=== PATIENT | male | born 1960 | race Caucasian/White ===

== ENCOUNTER 2018-10-23 14:47 | Emergency (ER) | payer OTHER ==
--- NOTE | 2018-10-23 15:11 | EDM.PDOC ---
ED HPI GENERAL MEDICAL PROBLEM - General Chief Complaint: Abdominal Pain Stated Complaint: STOMACH PAIN Time Seen by Provider: 10/23/18 15:07 Source of Information: Reports: Patient History Limitations: Reports: No Limitations - History of Present Illness INITIAL COMMENTS - FREE TEXT/NARRATIVE: 57-year-old male presents to the ED with 2 complaints. One is that he is identified a mobile lump in his left lower back that is somewhat painful. He discovered this yesterday. He also has diffuse pain in his left lower abdomen that started after severe paroxysmal coughing spells the last week due to viral bronchitis. States it hurts to bend over and to do certain movements like stand fully erect etc. His concern was whether or not he had developed a hernia. Functioning normally. He had a jose who from a lump in his lower back most likely a sarcoma which is making him concerned of course about the lump that he is found in his left lower back. He states he's had no fever or chills during this illness. Offering paroxysmal he but states overall much better than it was. He has not taken anything for the pain. Onset: Sudden Onset Date: 10/20/18 (F lower quadrant abdominal pain started 4 days ago. He discovered a lump in his left lower back adjacent to the lumbar spine yesterday. ) Duration: Day(s):, Intermittent, Waxing/Waning Location: Reports: Abdomen, Back (Lower back over the lumbar paraspinal musculature) Quality: Reports: Ache, Burning, Sharp, Stabbing, Other Severity: Moderate Improves with: Reports: Rest Worsens with: Reports: Other (Worse with coughing), Movement ( and certain movements) Context: Reports: Other. 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 He's already discussed this with Dr. Garcia.) - Past Surgical History Other Musculoskeletal Surgeries/Procedures:: needs total L shoulder Social & Family History - Tobacco Use Smoking Status *Q: Never Smoker - Caffeine Use Caffeine Use: Reports: Tea - Recreational Drug Use Recreational Drug Use: Yes Recreational Drug Type: Reports: Marijuana/Hashish ED ROS GENERAL - Review of Systems Review Of Systems: See Below Constitutional: Reports: Malaise, Weakness, Fatigue (During his viral bronchitis. He seems to be getting better), Night Sweats. Denies: Fever, Chills HEENT: Reports: Other (Voice is coming back.) Respiratory: Reports: Shortness of Breath, Cough, Sputum. Denies: Wheezing, Pleuritic Chest Pain, Hemoptysis (Occasional whitish sputum production.) Cardiovascular: Reports: Chest Pain (Central chest discomfort from coughing so much.). Denies: Blood Pressure Problem, Claudication (Not diagnosed with hypertension), Dyspnea on Exertion, Edema, Lightheadedness, Orthopnea Endocrine: Reports: No Symptoms GI/Abdominal: Reports: Abdominal Pain (Abdominal pain left lower quadrant and he points to where his external obliques were joint onto the rectus abdominis muscles in the left lower quadrant. This is very close to the internal inguinal canal. Pain is well localized to an area the size of a silver dollar. No definitive hematoma is evident but his abdominal wall is fairly obese.) : Reports: No Symptoms Musculoskeletal: Reports: Other Skin: Reports: No Symptoms Neurological: Reports: No Symptoms Psychiatric: Reports: No Symptoms Hematologic/Lymphatic: Reports: No Symptoms Immunologic: Reports: No Symptoms ED EXAM, GI/ABD - Physical Exam Exam: See Below Exam Limited By: No Limitations General Appearance: Alert, WD/WN, Anxious, Mild Distress Eyes: Bilateral: Normal Appearance Throat/Mouth: Normal Inspection, Normal Lips, Normal Oropharynx Head: Atraumatic, Normocephalic Neck: Normal Inspection, Supple, Full Range of Motion, Tender Lateral. No: Lymphadenopathy (L), Lymphadenopathy (R) Respiratory/Chest: No Respiratory Distress, Lungs Clear, Normal Breath Sounds, Other. No: Rhonchi, Wheezing Cardiovascular: Normal Peripheral Pulses, Regular Rate, Rhythm, No Edema, No Gallop, No Murmur (Does have a congested sounding cough.), No Rub GI/Abdominal Exam: Normal Bowel Sounds, Soft, Tender (Moderately obese. An area of tenderness the size of a silver dollar in the left lower quadrant of the abdomen where his external oblique muscles attached to the rectus abdominis muscles just superior to the internal inguinal canal. No definitive hematoma evident but point tenderness evident.), Other (Male) Exam: No Hernia, Other (Invagination of the scrotum done bilaterally reveals no evidence of an inguinal hernia on either side.) Back Exam: Other (On his back exam he has a palpable lump slightly largely manage only being adjacent to lumbar 3 spinous process. This is a paraspinous muscle tear that is likely been present for a lengthy period of time. It doesn' t seem to bother him much to move it around. He was reassured it is not a tumor. No way away either.) Extremities: Normal Inspection, Normal Range of Motion, Non-Tender Neurological: Alert, Oriented, CN II-XII Intact, Normal Cognition Psychiatric: Normal Affect, Normal Mood Skin Exam: Dry, Intact, Normal Color, No Rash Course - Vital Signs Last Recorded V/S: Last Vital Signs Temp 36.6 C 10/23/18 14:54 Pulse 90 10/23/18 14:54 Resp 16 10/23/18 14:54 BP 148/98 H 10/23/18 14:54 Pulse Ox 96 10/23/18 14:54 - Radiology Interpretation Free Text/Narrative:: 57-year-old male presents to the ED with concerns of diffuse left lower quadrant abdominal pain. This developed about 4-5 days ago secondary to severe paroxysmal coughing events due to viral bronchitis. States the pain is quite intense at times and worsened by certain movements and by standing fully erect. He also discovered a lump in his left lower back yesterday on palpation and was wondering if they were connected. Examination reveals he still has a mild paroxysmal cough but his lungs are clear and he is afebrile. Respiratory rate is 16/m and O2 sats are 96%. Examination of his left lower back shows that he has a palpable mobile muscle tear that is likely old off of the transverse process of the third lumbar vertebra. 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 He had a friend who developed a sarcoma and the same area and from this. On examination of his abdomen he has point tenderness in the left lower quadrant adjacent to where the external oblique muscle attaches to the rectus abdominis muscle just superior to the internal inguinal canal. This indicates that it is a tear likely of the external oblique from the rectus abdominis. Of note the patient is fairly obese with lax abdominal wall musculature. Invagination of the scrotum bilaterally revealed no evidence of a inguinal hernia. Patient reassured this will go away on its own over the next 14 days or so. I placed him on Voltaren 50 mg twice daily for the next 8 days in an effort to help the area heal and reduce some of his pain and inflammation. Departure - Departure Time of Disposition: 15:07 Disposition: Home, Self-Care 01 Condition: Fair Clinical Impression: Abdominal wall strain Qualifiers: Encounter type: initial encounter Qualified Code(s): S39.011A - Strain of muscle, fascia and tendon of abdomen, initial encounter Strain of lumbar paraspinal muscle Qualifiers: Encounter type: initial encounter Qualified Code(s): S39.012A - Strain of muscle, fascia and tendon of lower back, initial encounter - Discharge Information *PRESCRIPTION DRUG MONITORING PROGRAM REVIEWED*: Not Applicable *COPY OF PRESCRIPTION DRUG MONITORING REPORT IN PATIENT KELL: Not Applicable Prescriptions: Diclofenac Sodium [Voltaren] 50 mg PO BID #24 tab.ec Instructions: Muscle Strain, [id number] Referrals: PCP,None [Primary Care Provider] - Forms: ED Department Discharge Additional Instructions: Evaluation the emergency room today in regards to acute onset of left lower quadrant abdominal pain after coughing very hard for the last several days due to viral bronchitis. Examination reveals no evidence of an inguinal hernia. It appears that you have strained the external oblique muscle in the lower abdominal wall where it attaches to the midline or rectus abdominis muscle. This muscle tear will take on average 14 days to heal. Similarly you identified a lump in your lumbar back on the left side. Examination of this area shows this is muscle to that is been pulled away from the transverse process of the underlying bone on the left side. This is of no consequence. It may well of occurred from coughing excessively but is more likely to have occurred from the type of work you do treatment is time to heal. Suggest use of Voltaren 50 mg twice daily for the next 8 days to reduce pain and inflammation. If you're going to put anything on the sore spot then Icy/hot gel or Biofreeze to the area and a heat pack.
== END 2018-10-23 15:18 | disposition home or self-care (01) ==
LOC: JD.ED 14:47
DX: S39.011A Strain of muscle, fascia and tendon of abdomen, initial encounter (principal); S39.012A Strain of muscle, fascia and tendon of lower back, initial encounter; X58.XXXA Exposure to other specified factors, initial encounter
CPT/HCPCS: 99283

== ENCOUNTER 2019-04-07 07:10 | Emergency (ER) | payer OTHER ==
--- NOTE | 2019-04-07 07:51 | EDM.PDOC ---
ED HPI GENERAL MEDICAL PROBLEM - General Chief Complaint: Neck Problem Stated Complaint: NECK PAIN Time Seen by Provider: 04/07/19 07:35 Source of Information: Reports: Patient, RN Notes Reviewed - History of Present Illness INITIAL COMMENTS - FREE TEXT/NARRATIVE: 58-year-old male comes in with right-sided neck pain. This started about 5 days ago. Coughed sometime during that night and awakened the next morning with moderately severe pain base of right neck. He has had pain with motion both to the right and left pedis continued to bother him all week. Trying some Advil, ice today the pain is worse. 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 The pain does not radiate to the right arm or hand. As had some mild numbness of the fingers of his right hand but that comes and goes. He also does have history of quite severe bilateral shoulder discomfort that is chronic. 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 He's already discussed this with Dr. Garcia.) - Past Surgical History Other Musculoskeletal Surgeries/Procedures:: needs total L shoulder Social & Family History - Caffeine Use Caffeine Use: Reports: Tea ED ROS GENERAL - Review of Systems Review Of Systems: See Below Constitutional: Denies: Fever, Chills, Diaphoresis HEENT: Denies: Ear Pain, Sinus Problem, Throat Pain Respiratory: Denies: Shortness of Breath Cardiovascular: Denies: Chest Pain GI/Abdominal: Denies: Abdominal Pain, Nausea, Vomiting Musculoskeletal: Reports: Neck Pain, Back Pain Skin: Reports: No Symptoms Neurological: Reports: No Symptoms ED EXAM, UPPER BACK/NECK PAIN - Physical Exam Exam: See Below General Appearance: Alert, Moderate Distress Throat/Mouth Exam: Normal Inspection Head Exam: Atraumatic. No: Facial Swelling Neck Exam: Paraspinous Muscle Tender, Other (pain with motion R and L, no swelling, warmth or erythema, no adenopathy) GI/Abdominal: Soft, Non-Tender Back Exam: Paraspinal Tenderness. No: Vertebral Tenderness Extremities: Normal Inspection, Normal Range of Motion Neurologic: No Motor/Sensory Deficits Skin Exam: Normal Color, Warm/Dry Course - Vital Signs Last Recorded V/S: Last Vital Signs Temp 97.5 F 04/07/19 07:20 Pulse 98 04/07/19 07:20 Resp 18 04/07/19 07:20 BP 186/101 H 04/07/19 07:20 Pulse Ox 100 04/07/19 07:20 Departure - Departure Time of Disposition: 07:52 Disposition: Home, Self-Care 01 Condition: Fair Clinical Impression: Neck pain - Discharge Information Prescriptions: Naproxen [Naprosyn] 500 mg PO Q12HR #20 tab Acetaminophen/HYDROcodone [[place] 325-5 MG] 1 tab PO Q6H PRN #14 tablet PRN Reason: Pain Referrals: PCP,None [Primary Care Provider] - Forms: ED Department Discharge, ED Return to Work/School Form Additional Instructions: Naprosyn 500 mg twice daily. Continue to alternate ice and heat as needed. Take Tylenol in addition to the Naprosyn up to 3 times daily or hydrocodone if needed for severe pain. Do not take Tylenol and hydrocodone at same time. Do not drive or work when taking hydrocodone. Follow up with one of our [facility] providers early next week for recheck. Call [phone] for appointment. If symptoms not resolving as expected physical therapy will be the next level of treatment.
== END 2019-04-07 08:25 | disposition home or self-care (01) ==
LOC: JD.ED 07:10
DX: M54.2 Cervicalgia (principal)
CPT/HCPCS: 99283

== ENCOUNTER 2019-04-24 10:46 | Emergency (ER) | payer OTHER ==
[2019-04-24] MEDS ORDERED: Naproxen 500 MG Tab PO ONE (11:37)
--- NOTE | 2019-04-24 11:44 | EDM.PDOC ---
ED HPI GENERAL MEDICAL PROBLEM - General Chief Complaint: Upper Extremity Injury/Pain Stated Complaint: RT SHOULDER PAIN Time Seen by Provider: 04/24/19 11:38 Source of Information: Reports: Patient, RN, RN Notes Reviewed History Limitations: Reports: No Limitations - History of Present Illness INITIAL COMMENTS - FREE TEXT/NARRATIVE: Patient is a 58-year-old male who presents to our ED with right shoulder pain. He reports he has been having difficulty with his shoulders bilaterally for some time now. He had been receiving steroid injections in his left shoulder and he has essentially ran out of how many his insurance will pay for. He reports he needs a left total shoulder arthroplasty. 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 He has noted the pain has been worsening to the point of making it difficult for him to work. Reports he has noted some right arm numbness and swollen fingers. He has been following Dr. Blancas however due to some issues with payments he's been unable to see him now. Denies any prior MRI of the shoulder. Denies any prior imaging of the shoulder. Reports he was here a few weeks ago for neck pain and was given "King's and Naprosyn" which she reports worked well. States he has never had a cortisone injection in his right shoulder. Denies any recent trauma. Denies any past medical history. No current medications. No known drug allergies. He does not have a primary care provider but states he would like to establish locally. Right Shoulder Pain Score (Numeric/FACES): 10 - Related Data Allergies Allergy/AdvReac Type Severity Reaction Status Date / Time No Known Allergies Allergy Verified 04/24/19 10:56 Home Meds: Home Meds Naproxen [Naprosyn] 500 mg PO Q12HR 5 Days #1 tab 04/24/19 [Rx] Past Medical History - Past Health History Medical/Surgical History: Denies Medical/Surgical History Musculoskeletal History: Reports: Osteoarthritis - Past Surgical History Other Musculoskeletal Surgeries/Procedures:: needs total L shoulder Social & Family History - Tobacco Use Smoking Status *Q: Never Smoker - Caffeine Use Caffeine Use: Reports: Tea Review of Systems - Review of Systems Review Of Systems: See Below Constitutional: Reports: No Symptoms. Denies: Chills, Fever, Weakness Respiratory: Reports: No Symptoms. Denies: Shortness of Breath, Wheezing, Cough Cardiovascular: Reports: No Symptoms. Denies: Chest Pain, Edema, Palpitations Musculoskeletal: Reports: Shoulder Pain (Bilateral with right being worse than left now. ) Skin: Reports: No Symptoms. Denies: Cyanosis Neurological: Reports: No Symptoms Psychiatric: Reports: No Symptoms ED EXAM, GENERAL - Physical Exam Exam: See Below Exam Limited By: No Limitations General Appearance: Alert, WD/WN, No Apparent Distress Ears: Normal External Exam Nose: Normal Inspection Head: Atraumatic, Normocephalic Neck: Normal Inspection, Supple, Non-Tender, Full Range of Motion Respiratory/Chest: No Respiratory Distress, Lungs Clear, Normal Breath Sounds, No Accessory Muscle Use, Chest Non-Tender Cardiovascular: Regular Rate, Rhythm, No JVD, No Murmur Back Exam: Normal Inspection, Full Range of Motion Extremities: Normal Inspection, No Pedal Edema, Normal Capillary Refill, Limited Range of Motion (difficulty with all range of motion due to pain. Patient reports he is unable to elevate the extremity). No: Non-Tender ( tenderness to anterior and posterior aspect of shoulder joint.) Neurological: Alert, Oriented, CN II-XII Intact (Grossly) Course - Vital Signs Last Recorded V/S: Last Vital Signs Temp 97.5 F 04/24/19 10:53 Pulse 81 04/24/19 10:53 Resp 16 04/24/19 10:53 BP 162/95 H 04/24/19 10:53 Pulse Ox 97 04/24/19 10:53 - Orders/Labs/Meds Meds: Medications Discontinued Medications Generic Name Dose Route Start Last Admin Trade Name Freq PRN Reason Stop Dose Admin Naproxen 500 mg 04/24/19 11:37 04/24/19 11:50 Naprosyn PO 04/24/19 11:38 500 mg ONETIME ONE Administration - Re-Assessments/Exams Free Text/Narrative Re-Assessment/Exam: initial plan will be to provide one-time dose of Naprosyn and obtain x-ray of right shoulder. We had a lengthy discussion on need to establish with a primary care provider. Since the patient is having some difficulty with medical bills we discussed possibility of seeking care with them or walking clinic in the future. Patient is very receptive to this idea. He would like a list of primary care providers in the area. 04/24/19 11:48 Departure - Departure Time of Disposition: 12:30 Disposition: Home, Self-Care 01 Condition: Good Clinical Impression: Arthritis of right shoulder region - Discharge Information *PRESCRIPTION DRUG MONITORING PROGRAM REVIEWED*: No *COPY OF PRESCRIPTION DRUG MONITORING REPORT IN PATIENT KELL: No Prescriptions: Naproxen [Naprosyn] 500 mg PO Q12HR 5 Days #1 tab Instructions: What You Need to Know About Osteoarthritis, Shoulder Pain, Easy- to-Read, Heat Therapy Referrals: Amado Garcia MD [Physician] - Forms: ED Department Discharge Additional Instructions: You were seen today in the emergency room for right shoulder pain. As you noted this has been an ongoing issue with both of your shoulders. An x-ray of the right shoulder was obtained showing degenerative change within the acromioclavicular joint. There is also a small spur noted within the lower part of this joint. Nothing acute was noted on this x-ray. Unfortunately because this is a structural problem there is nothing I can do to help you long- term. Pain medications will only mask the symptoms and they will return. Because of this it is recommended that you follow-up with Dr. Garcia, orthopedist , as we discussed. You have seen him in the past. Your given a prescription for Naprosyn which he should take every 12 hours with food. This will help with the inflammation around the area. Be cautious as it can lead to upset stomach and ulcers. It is also recommended that you apply heat to the shoulder , but be careful not to burn yourself. As far as her difficulty sleeping, recommend Benadryl or Tylenol PM to occasionally help with these symptoms. You indicated that you do not have a primary care provider but would like to see someone in our clinic. Your given a sheet with names of our providers and contact information. Recommended you follow-up with them should symptoms continue. They may also be able to help you with your sleeping difficulty.
--- NOTE | 2019-04-24 12:07 | CR ---
Right shoulder: Three views of the right shoulder were obtained. Comparison: No previous shoulder study. Joint space narrowing is noted within the acromioclavicular joint with inferior spurring. Glenohumeral joint appears within normal limits. No acute fracture, dislocation or other bony abnormality is seen. Impression: 1. Degenerative change within the acromioclavicular joint as noted above. 2. Right shoulder study is otherwise unremarkable. Diagnostic code #2
== END 2019-04-24 12:54 | disposition home or self-care (01) ==
LOC: JD.ED 10:46
DX: M19.011 Primary osteoarthritis, right shoulder (principal); Z79.899 Other long term (current) drug therapy
CPT/HCPCS: 73030; 99284; A9270; 99283

== ENCOUNTER 2019-08-17 07:26 | Day surgery (SDC) | payer OTHER ==
[~2019-08-17 07:26] MED LIST: EPINEPHrine 1 MG/ML 30 ML MDV IRR SCH; EPINEPHrine 1 MG/ML SDV ONE; Lactated Ringers 1,000 ML IV SCH; Lidocaine 1% 2 ML ONE; Lidocaine 1% 4 ML ONE; Lidocaine 1%/Sod Bicarbonate in NS 8.4% 1 ML Syringe IDERM PRN; Midazolam 1 MG/ML 2 ML SDV ONE; Propofol 200 MG/20 ML SDV ONE; Ropivacaine 0.5% 5 MG/ML 30 ML SDV ONE; Sodium Chloride 0.9% 10 ML Syringe FLUSH PRN; cloNIDine 1,000 MCG/10 ML SDV ONE; fentaNYL 100 MCG/2 ML SDV ONE
--- NOTE | 2019-08-17 08:22 | PCM.PREANE ---
Preanesthetic Assessment - Anesthesia/Transfusion/Family Hx Anesthesia History: Prior Anesthesia Without Reaction Transfusion History: No Prior Transfusion(s) - Review of Systems General: No Symptoms Pulmonary: No Symptoms Cardiovascular: No Symptoms Gastrointestinal: No Symptoms Neurological: No Symptoms Other: Reports: None - Physical Assessment NPO Status Date: 08/16/19 NPO Status Time: 21:00 Vital Signs: Last Vital Signs Temp 98.3 F 08/17/19 07:35 Pulse 81 08/17/19 07:35 Resp 16 08/17/19 07:35 BP 158/90 H 08/17/19 07:35 Pulse Ox 96 08/17/19 07:35 Height: 1.75 m Weight: 107.501 kg ASA Class: 2 Mental Status: Alert & Oriented x3 Airway Class: Mallampati = 2 Dentition: Reports: Edentulous Thyro-Mental Finger Breadths: 3 Mouth Opening Finger Breadths: 3 ROM/Head Extension: Full Lungs: Clear to Auscultation, Normal Respiratory Effort Cardiovascular: Regular Rate, Regular Rhythm - Lab Values: Laboratory Last Values MRSA (PCR) Negative 08/15/19 12:30 - Allergies Allergies/Adverse Reactions: Allergies Allergy/AdvReac Type Severity Reaction Status Date / Time No Known Allergies Allergy Verified 04/24/19 10:56 - Acknowledgements Anesthesia Type Planned: General Anesthesia, Regional Block (Rt Interscalene preoperatively) Pt an Appropriate Candidate for the Planned Anesthesia: Yes Alternatives and Risks of Anesthesia Discussed w Pt/Guardian: Yes Pt/Guardian Understands and Agrees with Anesthesia Plan: Yes PreAnesthesia Questionnaire - Past Health History Medical/Surgical History: Denies Medical/Surgical History Cardiovascular History: Reports: Hypertension Musculoskeletal History: Reports: Osteoarthritis - Past Surgical History Other Musculoskeletal Surgeries/Procedures:: needs total L shoulder - HOME MEDS Home Medications: Home Meds Naproxen [Naprosyn] 500 mg PO Q12HR 5 Days #1 tab 04/24/19 [Rx] Acetaminophen/HYDROcodone [[place] 325-5 MG] 1 - 2 tab PO Q6H PRN #40 tablet 08/17 [Rx] Cyclobenzaprine [Flexeril] 10 mg PO BID PRN #30 tab 08/17/19 [Rx] traMADol [Ultram] 1 tab PO ASDIRECTED PRN 08/17/19 [History] - CURRENT (IN HOUSE) MEDS Current Meds: Current Medications Epinephrine HCl (Adrenalin) 3 mg IRR ONETIME DENNY Stop: 08/17/19 12:00 Lactated Ringer's (Ringers, Lactated) 1,000 mls @ 125 mls/hr IV ASDIRECTED DENNY Stop: 08/17/19 23:00 Last Admin: 08/17/19 07:50 Dose: 125 mls/hr Lidocaine/Sodium Bicarbonate (Buffered Lidocaine 1% In Ns 8.4%) 0.25 ml IDERM ONETIME PRN PRN Reason: Prior to IV Start Stop: 08/17/19 18:00 Last Admin: 08/17/19 07:50 Dose: 0.25 ml Sodium Chloride (Saline Flush) 10 ml FLUSH ASDIRECTED PRN PRN Reason: Keep Vein Open Stop: 08/17/19 18:00
[2019-08-17] MEDS ORDERED: Succinylcholine/Sod PF 100 MG/5 ML SYRINGE IV ONE (08:58)
[2019-08-17] MEDS ORDERED: Propofol 200 MG/20 ML SDV ONE (09:01)
[2019-08-17] MEDS ORDERED: fentaNYL 100 MCG/2 ML SDV ONE (09:17)
[2019-08-17] MEDS ORDERED: Bupivacaine 0.25% 10 ML SDV ONE (09:42)
[2019-08-17] MEDS ORDERED: Ondansetron 4 MG/2 ML SDV ONE (09:58)
[2019-08-17] MEDS ORDERED: Lactated Ringers 1,000 ML ONE (10:01)
--- NOTE | 2019-08-17 10:10 | PCM.PRNOTE ---
- Free Text/Narrative Note: Postoperative regional pain control requested by surgeon. Pre-op Dx: Right Rotator cuff tear Surgical procedure: Rotator cuff repair with subacromial decompression and biceps tenotomy Procedure: Rt Interscalene block with U/S guidance Requesting physician: Dr. Amado Vo Risks and benefits discussed with the patient preoperatively including infection , bleeding, incomplete or failed block, possible nerve damage, local anesthetic toxicity. Chart reviewed, VS stable. Permit signed. Patient in preoperative room 4, stable , alert and awake. Time out performed at 08:30. Oxygen 3L via NC. Right side of the neck was prepped with Chloraprep x 1 and allowed to dry. Midazolam IV 4 mg given in incremental doses. Under aseptic technique, the brachial plexus was identified under ultrasound prior to needle insertion. 2" Stimuplex needle #22 G was inserted under US guidance. Under direct visualization of needle tip and eliciting forearm twitch at 0.6 mA, the injection of 0.5% Ropivacaine with 1:200k epinephrine and 100 mcg of Clonidine, total of 30 mls in divided doses, maintaining negative aspiration was completed without problems. No local anesthetic toxicity was noted. Patient is awake, stable and tolerated the procedure well. Please see the attached U/S images Time: 08:30 - 08:46
[2019-08-17] MEDS ORDERED: fentaNYL 100 MCG/2 ML SDV IVPUSH PRN (10:18)
[2019-08-17] MEDS ORDERED: HYDROmorphone 0.5 MG/0.5 ML Syringe IVPUSH PRN (10:18)
[2019-08-17] MEDS ORDERED: Ketorolac 30 MG/ML SDV IVPUSH SCH (11:30)
[2019-08-17] MEDS ORDERED: Acetaminophen/HYDROcodone 325-5 MG Tab PO PRN (11:39)
[2019-08-17] MEDS ORDERED: Cyclobenzaprine 10 MG Tab PO ONE (11:39)
--- NOTE | 2019-08-17 12:08 | PCM48HPAN ---
Post Anesthesia Note - EVALUATION WITHIN 48HRS OF ANESTHETIC Vital Signs in Normal Range: Yes Patient Participated in Evaluation: Yes Respiratory Function Stable: Yes Airway Patent: Yes Cardiovascular Function Stable: Yes Hydration Status Stable: Yes Pain Control Satisfactory: Yes Nausea and Vomiting Control Satisfactory: Yes Mental Status Recovered: Yes Vital Signs: Last Vital Signs Temp 97.9 F 08/17/19 11:45 Pulse 77 08/17/19 11:45 Resp 19 08/17/19 11:45 BP 122/81 08/17/19 11:45 Pulse Ox 94 L 08/17/19 11:53
--- NOTE | 2019-08-23 06:54 | PCM.OPNOTE ---
- General Post-Op/Procedure Note Date of Surgery/Procedure: 08/17/19 Operative Procedure(s): right shoulder video arthroscopy with large rotator cuff repair, subacromial decompression, biceps tenotomy and extensive debridement Pre Op Diagnosis: right shoulder rotator cuff tear with impingement and biceps tendinopathy Post-Op Diagnosis: Same Anesthesia Technique: General ET Tube, Regional Block Primary Surgeon: Amado Garcia Anesthesia Provider: Vernon Gray Dural Mechanic: Ria Tripp in mLs: 5 Complications: None Condition: Good
--- NOTE | 2019-08-23 10:08 | OR ---
DATE OF OPERATION: 08/17/2019 SURGEON: Amado Garcia MD OPERATION PERFORMED: Right shoulder video arthroscopy with large rotator cuff repair, subacromial decompression, biceps tenotomy, and extensive debridement. PREOPERATIVE DIAGNOSIS: Right shoulder rotator cuff tear with impingement and biceps tendinopathy. POSTOPERATIVE DIAGNOSIS: Right shoulder rotator cuff tear with impingement and biceps tendinopathy. ANESTHESIA: General endotracheal intubation with regional interscalene block. ANESTHESIA PROVIDER: Fay Ott. REHAB NURSING TECH: Ria Tripp PA-C ESTIMATED BLOOD LOSS: 5 mL. COMPLICATIONS: None. CONDITION: Stable. DESCRIPTION OF PROCEDURE: The patient was identified in the preoperative holding area. Proper site was marked and identified by surgeon. The patient was taken back to the operating theater, where after adequate anesthesia, the patient was placed in the left lateral lazy decubitus position. Wedge was placed posteriorly. Right upper extremity was then sterilely prepped and draped in usual sterile fashion. OR time-out was performed. The patient received 2 g of IV Ancef and 12 pounds of traction was applied to the right upper extremity. Standard posterior incision was made. Scope trocar was introduced to the glenohumeral joint. The patient was noted to have a full-thickness rotator cuff tear of the supraspinatus tendon. Subscapularis tendon was intact. Biceps tendon and the superior labrum were noted to have significant fraying as well as erythema in the biceps tendon. There was no large cartilaginous defects. Anterior portal was then created from an outside-in technique and a biceps tenotomy was performed and extensive debridement was done of the superior labrum as well as any loose and remaining synovium and remaining loose fragments of the labrum back to a stable rim. At this time, attention was turned to the subacromial space. The patient was noted to have a large amount of bursitis. Lateral portal was created and extensive debridement of the subacromial bursa was then done. He was also noted to have a type 2/3 acromion and an acromioplasty back to a smooth border using a 4.0 full- radius ирина was completed at this time. A good bony bleeding bed was created with the use of a ирина at the old footprint of the supraspinatus tendon. One 4.75 mm Arthrex SwiveLock anchor triple loaded was then placed medially. Two limbs of FiberTape and then 4 limbs of FiberWire were then brought through this. Another 4.75 mm double loaded anchor was placed posteriorly for a double medial row repair and both limbs of FiberTape and 2 limbs of FiberWire were then passed posteriorly. All 6 limbs of the FiberWire were then tied medially and cut and then 2 limbs of the FiberTape were brought out laterally and self-tapping 4.75 mm Arthrex SwiveLock anchors were then placed anterior and posteriorly for a lateral row repair with the FiberTape. He was found to have adequate catholic of the footprint and a watertight repair. The rest of the rotator cuff was intact. The patient was noted to have no other pathology. Excess saline was drained from the shoulder. 3-0 nylon simple suture was used for closure of the skin and the patient was placed in a sterile soft dressing and a sling and sent to the PACU in stable condition. AYDEN /[id number]
== END 2019-08-17 14:32 | disposition home or self-care (01) ==
LOC: JD.SDS 07:26
PROVIDERS: ATTEND Orthopaedic Surgery
DX: M75.121 Complete rotator cuff tear or rupture of right shoulder, not specified as traumatic (principal); M75.41 Impingement syndrome of right shoulder; M75.21 Bicipital tendinitis, right shoulder; I10 Essential (primary) hypertension; M19.90 Unspecified osteoarthritis, unspecified site; R06.83 Snoring; N40.0 Benign prostatic hyperplasia without lower urinary tract symptoms; R97.20 Elevated prostate specific antigen [PSA]; E66.3 Overweight; Z68.35 Body mass index [BMI] 35.0-35.9, adult
CPT/HCPCS: 29823; 29826; 29827; 87641; A9270; C1713; J0171; J0735; J1885; J2001; J2250; J2405; J2704; J2795; J3010; J3490; J7120; 01630; 64415

== ENCOUNTER 2019-11-23 10:23 | Day surgery (SDC) | payer OTHER ==
[~2019-11-23 10:23] MED LIST changes: -EPINEPHrine 1 MG/ML 30 ML MDV IRR SCH; -EPINEPHrine 1 MG/ML SDV ONE; -Lidocaine 1% 2 ML ONE; -Lidocaine 1% 4 ML ONE; -Midazolam 1 MG/ML 2 ML SDV ONE; -Propofol 200 MG/20 ML SDV ONE; -Ropivacaine 0.5% 5 MG/ML 30 ML SDV ONE; -cloNIDine 1,000 MCG/10 ML SDV ONE; -fentaNYL 100 MCG/2 ML SDV ONE
[2019-11-23] MEDS ORDERED: Propofol 200 MG/20 ML SDV ONE ×3 (10:49→12:52)
[2019-11-23] MEDS ORDERED: Lidocaine 1% 4 ML ONE (10:49)
[2019-11-23] MEDS ORDERED: Midazolam 1 MG/ML 2 ML SDV ONE (10:50)
[2019-11-23] MEDS ORDERED: fentaNYL 100 MCG/2 ML SDV ONE (10:50)
--- NOTE | 2019-11-23 10:57 | PCM.PREANE ---
Preanesthetic Assessment - Anesthesia/Transfusion/Family Hx Anesthesia History: Prior Anesthesia Without Reaction Family History of Anesthesia Reaction: No Transfusion History: No Prior Transfusion(s) Intubation History: Unknown - Review of Systems General: No Symptoms Pulmonary: No Symptoms (History of snoring. ETOH: only beers not every day per patient /Marijuana: QOD:) Cardiovascular: No Symptoms (History of HTN, ) Gastrointestinal: No Symptoms (GERD occasionally) Neurological: No Symptoms, Numbness (bilateral hands) Other: Reports: None, Depression, Anxiety - Physical Assessment NPO Status Date: 11/23/19 NPO Status Time: 04:00 Vital Signs: Last Vital Signs Temp 36.7 C 11/23/19 10:25 Pulse 95 11/23/19 10:25 Resp 16 11/23/19 10:25 BP 184/92 H 11/23/19 10:25 Pulse Ox 97 11/23/19 10:25 Height: 1.75 m Weight: 107.501 kg ASA Class: 2 Mental Status: Alert & Oriented x3 Airway Class: Mallampati = 2 Dentition: Reports: Edentulous Thyro-Mental Finger Breadths: 3 Mouth Opening Finger Breadths: 3 ROM/Head Extension: Full Lungs: Clear to Auscultation, Normal Respiratory Effort Cardiovascular: Regular Rate, Regular Rhythm, No Murmurs - Lab Values: Laboratory Last Values SARS Virus RNA (PCR) Negative (NEGATIVE) 11/21/19 13:02 All labs reviewed and noted and within acceptable ranges to proceed with scheduled procedure. - Imaging/EKG Impressions: EKG: SR rate=74, incomplete RBBB, minimal ST elevation anterior leads, probable left atrial abnormality - Allergies Allergies/Adverse Reactions: Allergies Allergy/AdvReac Type Severity Reaction Status Date / Time No Known Allergies Allergy Verified 04/24/19 10:56 - Anesthesia Plan Pre-Op Medication Ordered: None - Acknowledgements Anesthesia Type Planned: MAC Pt an Appropriate Candidate for the Planned Anesthesia: Yes Alternatives and Risks of Anesthesia Discussed w Pt/Guardian: Yes Pt/Guardian Understands and Agrees with Anesthesia Plan: Yes PreAnesthesia Questionnaire - Past Health History Medical/Surgical History: Denies Medical/Surgical History Cardiovascular History: Reports: Hypertension Musculoskeletal History: Reports: Osteoarthritis - Past Surgical History Other Musculoskeletal Surgeries/Procedures:: needs total L shoulder - HOME MEDS Home Medications: Home Meds Naproxen [Naprosyn] 500 mg PO Q12HR 5 Days #1 tab 04/24/19 [Rx] Acetaminophen/HYDROcodone [[place] 325-5 MG] 1 - 2 tab PO Q6H PRN #40 tablet 08/17 [Rx] Cyclobenzaprine [Flexeril] 10 mg PO BID PRN #30 tab 08/17/19 [Rx] traMADol [Ultram] 1 tab PO ASDIRECTED PRN 08/17/19 [History] - CURRENT (IN HOUSE) MEDS Current Meds: Current Medications Lactated Ringer's (Ringers, Lactated) 1,000 mls @ 125 mls/hr IV ASDIRECTED DENNY Stop: 11/23/19 23:00 Lidocaine/Sodium Bicarbonate (Buffered Lidocaine 1% In Ns 8.4%) 0.25 ml IDERM ONETIME PRN PRN Reason: Prior to IV Start Stop: 11/23/19 18:00 Sodium Chloride (Saline Flush) 10 ml FLUSH ASDIRECTED PRN PRN Reason: Keep Vein Open Stop: 11/23/19 18:00
--- NOTE | 2019-11-23 13:04 | PCM48HPAN ---
Post Anesthesia Note - EVALUATION WITHIN 48HRS OF ANESTHETIC Vital Signs in Normal Range: Yes Patient Participated in Evaluation: Yes Respiratory Function Stable: Yes Airway Patent: Yes Cardiovascular Function Stable: Yes Hydration Status Stable: Yes Pain Control Satisfactory: Yes Nausea and Vomiting Control Satisfactory: Yes Mental Status Recovered: Yes Vital Signs: Last Vital Signs Temp 98.0 F 11/23/19 10:25 Pulse 95 11/23/19 10:25 Resp 16 11/23/19 10:25 BP 184/92 H 11/23/19 10:25 Pulse Ox 97 11/23/19 10:25 1258 94% 16 80 97.6 122/73
--- NOTE | 2019-11-23 13:21 | PCM.PRNOTE ---
- Free Text/Narrative Note: Date: 11/23/2019 Procedure: initial screening colonoscopy Findings: unsatisfactory prep. The cecum was reached. Three polyps, the largest of which measured about 2 cm, all within close range of each other in the descending/sigmoid colon. Detailed Report: The patient was taken to the endoscopy suite and placed in left lateral decubitus position. Time out was performed and monitored anesthesia care initiated. The anus appeared normal. Low sphincter tone noted on digital exam, which was otherwise unremarkable. The colonoscope was inserted and advanced to the cecum easily. The appendiceal orifice was visualized. Throughout the colon, a thin orange film coated the mucosa, and there was an extensive amount of bubbles, making visualization suboptimal. Every effort was made to wash the mucosa and get a good look as the scope was withdrawn. At about 40 cm from the anal verge, a few pedunculated polyps were noted. Hot snare polypectomy was performed for two, the largest of which would not fit through the suction channel, and appeared to be approximately 2 cm in width after retrieval. A third sessile polyp just adjacent to the bigger pedunculated polyp was biopsied with forceps and remnant tissue was fulgurated. No diverticular disease or hemorrhoidal disease was noted. The rectum appeared normal. Air was evacuated and the scope withdrawn. The patient tolerated the procedure well. Pietro Caceres MD General Surgery
== END 2019-11-23 13:46 | disposition home or self-care (01) ==
LOC: JD.SDS 10:23
PROVIDERS: ATTEND Surgery
DX: Z12.11 Encounter for screening for malignant neoplasm of colon (principal); D12.5 Benign neoplasm of sigmoid colon; I10 Essential (primary) hypertension; E66.3 Overweight; Z11.59 Encounter for screening for other viral diseases; Z68.35 Body mass index [BMI] 35.0-35.9, adult
CPT/HCPCS: 45380; 45385; 87635; J2001; J2250; J2704; J3010; J7120; 00812; U0002

== ENCOUNTER 2023-11-07 08:46 | Emergency (ER) | payer OTHER ==
[2023-11-07 09:14] LABS: BASOPHILS PERCENT AUTO 0.3 % (0.0-1.0); EOSINOPHILS ABSOLUTE AUTO 0.2 K/mm3 (0.0-0.4); EOSINOPHILS PERCENT AUTO 2.8 % (0.0-6.0); HEMATOCRIT 45.6 % (42.0-52.0); HEMOGLOBIN 15.2 gm/dl (14.0-18.0); IMMATURE GRAN ABSOLUTE AUTO 0.01 K/mm3 (0.00-0.05); IMMATURE GRAN PERCENT AUTO 0.2 % (0.0-0.4); LYMPHOCYTES ABSOLUTE AUTO 1.7 K/mm3 (1.0-4.8); LYMPHOCYTES PERCENT AUTO 27.8 % (24.0-44.0); MEAN CORPUSCULAR HEMOGLOBIN 30.3 pg (28.0-32.0); MEAN CORPUSCULAR HGB CONC 33.3 g/dl (32.0-36.0); MEAN PLATELET VOLUME 9.1 fl (9.4-12.4); MONOCYTES ABSOLUTE AUTO 0.5 K/mm3 (0.0-0.8); MONOCYTES PERCENT AUTO 8.1 % (0.0-8.0); NEUTROPHILS ABSOLUTE AUTO 3.7 K/mm3 (1.8-7.7); NEUTROPHILS PERCENT AUTO 60.8 % (41.0-71.0); PLATELET COUNT,PLT 237 K/mm3 (150-400); RED BLOOD CELL COUNT 5.01 M/mm3 (4.52-5.90); WHITE BLOOD CELL COUNT,WBC 6.04 K/mm3 (3.9-11.3)
[2023-11-07 09:41] LABS: A/G RATIO 1.2 (1-2); ALBUMIN 3.9 g/dl (3.4-5.0); BILIRUBIN TOTAL 0.7 mg/dL (0.2-1.0); CALCIUM 8.9 mg/dL (8.5-10.1); EST CRCL DRUG DOSING (CG) 75.61 mL/min; INR 0.95; MAGNESIUM 2.1 mg/dL (1.8-2.4); PHOSPHORUS 2.8 mg/dL (2.6-4.7); PROTEIN TOTAL,TP 7.1 g/dl (6.4-8.2); PROTHROMBIN TIME 10.2 SECONDS (9.7-12.0)
[2023-11-07 09:58] LABS: ANION GAP 12.9 (5-15); POTASSIUM,K 3.9 mEq/L (3.5-5.1)
[2023-11-07] MEDS: Aspirin 81 MG Tab.Chew PO ONE (10:24)
[2023-11-07] MEDS: Pantoprazole 40 MG Vial IVPUSH ONE (11:05)
[2023-11-07] MEDS: Famotidine 20 MG/2 ML SDV IVPUSH ONE (11:05)
== END 2023-11-07 13:20 | disposition home or self-care (01) ==
LOC: JD.ED 08:46
DX: R07.89 Other chest pain (principal); R06.02 Shortness of breath; R00.2 Palpitations; I10 Essential (primary) hypertension; Z79.899 Other long term (current) drug therapy
CPT/HCPCS: 36415; 71045; 80053; 83690; 83735; 83880; 84100; 84484; 85025; 85379; 85610; 93005; 96374; 96375; 99285; A9270; C9113; J3490